=== PATIENT | male | born 1965 | race Caucasian/White ===

== ENCOUNTER 2017-11-04 06:12 | Day surgery (SDC) | payer OTHER ==
[~2017-11-04] VITALS: Ht 167.6 cm; Wt 88.9 kg
[2017-11-04 06:34] VITALS: BP 166/89
[2017-11-04 11:33] VITALS: BP 124/71
== END 2017-11-04 10:55 | disposition home or self-care (01) ==
LOC: DS 06:12 → OR 07:30 → DS 07:30 → OR 09:00 → DS 10:55
PROVIDERS: Neuromusculoskeletal Medicine, Sports Medicine
PROC: 0PBG0ZZ Excision of Left Humeral Shaft, Open Approach (ICD-10-PCS; 2017-11-04)
PROC: 0PBG0ZZ Excision of Left Humeral Shaft, Open Approach (ICD-10-PCS; principal; 2017-11-04 07:30)
DX: M77.12 Lateral epicondylitis, left elbow (principal)
CPT/HCPCS: J0690; J1170; J2704; J3010; J3490; J7120